=== PATIENT | male | born 1985 | race American Indian/Alaskan Native ===

== ENCOUNTER 2017-01-29 15:25 | Emergency (ER) | payer SELFPAY ==
--- NOTE | ~2017-01-29 | ER ---
PATIENT'S NAME: ADELE ROBLESH Leora [facility] AGE: 31 Y [address] ROOM: [place] [id number] LOCATION: ED ADMIT DATE: 01/29/2017 ER/Outpatient Report DISCHARGE DATE: 01/29/2017 FAMILY PHYSICIAN: PHYSICIAN, NO ATTENDING PHYSICIAN: Alysha Sinclair Time of Arrival: 1525 hours. Time of Evaluation: 1610 hours. IDENTIFICATION: A 31-year-old male. CHIEF COMPLAINT: Cough and congestion. HISTORY OF PRESENT ILLNESS: The patient is a 31-year-old male, who has had cough and congestion off and on for the last 1 month. He has been feeling worse the last few days. He is coughing up sputum, productive of yellow in color. He has had nasal drainage with the same yellow color. No fever or chills. He has had some diarrhea off and on, but none today. No blood in his stools. No dark, tarry, or black stools. No sore throat. He has had pneumonia in the past when he was younger. ALLERGIES: PENICILLIN, CAUSES ANAPHYLAXIS. CURRENT MEDICATIONS: Denies. MEDICAL PROBLEMS: Pneumonia and hypoglycemia. PRIOR SURGERIES: Denies. SOCIAL HISTORY: The patient lives here in [place]. Tobacco use, 1 pack per day. Alcohol use, denies. Chewing tobacco, off and on. Drug use, history of drug use in the past, none currently, has been cleaned for 2 years. REVIEW OF SYSTEMS: All systems reviewed and negative other than what is noted in the HPI. ILL CONTACTS: PATIENT'S NAME: ADELE ROBLESH Leora [facility] AGE: 31 Y [address] ROOM: [place] [address] LOCATION: ED ADMIT DATE: 01/29/2017 ER/Outpatient Report DISCHARGE DATE: 01/29/2017 FAMILY PHYSICIAN: PHYSICIAN, NO ATTENDING PHYSICIAN: Alysha Sinclair His children were ill when this all started. He has had no recent travel. FAMILY HISTORY: No pertinent family history identified. PHYSICAL EXAMINATION: VITAL SIGNS: Height 6 feet and 0 inches, weight 105.3 kg, blood pressure 116/65, pulse 97, respirations 16, temperature 99.3, and saturations 94%. GENERAL: A 31-year-old male in no acute distress. HEENT: Head: Normocephalic and atraumatic. Ears: TMs translucent both ears. Eyes: Pupils are equal, round, and reactive to light and accommodation. Extraocular movements intact. Nose: Mucosa erythematous and congested. Purulent drainage. No sinus tenderness. Mouth: No lesions. Pharynx benign. NECK: Supple. No lymphadenopathy. No nuchal rigidity. LUNGS: Clear to auscultation with few inspiratory wheezes. HEART: Regular rate and rhythm. No murmur, rub, or gallop. ABDOMEN: Bowel sounds present, soft, nondistended, and nontender. SKIN: [place], warm, and dry. No lesions or rashes noted. He is complaining of some pain along his lower rib cage, worse with coughing. Chest x-ray, 2-view, no acute process. Pending Radiology over-read. IMPRESSION AND PLAN: Bronchitis with reactive airway disease. The patient was given an albuterol treatment here in the ER, the wheezes relieved, he did feel like he was breathing a little bit easier. Z-DANNA as directed. Tylenol or ibuprofen for pain. Tessalon Perles or Robitussin DM for cough for 5 days. Albuterol inhaler 2 puffs q.4 hours p.r.n. for wheezing. Tessalon Perles 1 p.o. t.i.d. p.r.n. for cough, dispensed 10 with 0 refills and Z-DANNA as directed. Stop smoking. Follow up with physician of choice in 3 to 7 days if no improvement or sooner if symptoms worsen. The patient understands and agrees, and all questions have been answered. ALYSHA SINCLAIR MD CAR/modl /[id number] d: 01/30/17 0007 t: 02/04/17 0114, OUTPATIENT REPORT
== END 2017-01-29 16:48 | disposition disaster alternative care site (69) ==
LOC: GMED 15:25
DX: J45.909 Unspecified asthma, uncomplicated (principal); Z88.0 Allergy status to penicillin